=== PATIENT | male | born 1985 | race Caucasian/White ===

== ENCOUNTER 2024-05-18 00:11 | Emergency (ER) | payer BC ==
[~2024-05-18] VITALS: Ht 180.3 cm; Wt 77.0 kg
[2024-05-18 00:27] VITALS: O2SAT 98
[2024-05-18 01:15] VITALS: TEMP 37.00296
[2024-05-18 03:18] LABS: CARBON DIOXIDE 32 mEq/L (21-32); CHLORIDE 101 mEq/L (98-107); SODIUM 139 mEq/L (136-145)
[2024-05-18 03:19] LABS: BASOPHILS % 0.2 % (0.0-2.0); CALCIUM 9.4 mg/dL (8.7-10.4); HEMATOCRIT. 35.6 % (42.0-52.0); HEMOGLOBIN. 12.3 g/dL (14.0-18.0); LYMPHOCYTES % 13.8 % (20.0-50.0); MEAN CORPUSCULAR HEMOGLOBIN 31.7 pg (28.0-32.0); MEAN CORPUSCULAR HGB CONC 34.5 g/dL (31.0-37.0); MEAN CORPUSCULAR VOLUME 91.9 fL (80.0-94.0); MEAN PLATELET VOLUME 8.4 fl (7.4-10.4); MONOCYTES % 8.2 % (2.0-8.0); NEUTROPHILS % 74.8 % (40.0-76.0); PLATELET 172 x1000/uL (130-400); RED BLOOD CELL COUNT 3.87 mill/uL (4.7-6.1); RED CELL DISTRIBUTION WIDTH 13.1 % (11.6-14.6); WHITE BLOOD COUNT 7.5 x1000/uL (4.5-11.0)
[2024-05-18 03:23] LABS: GLUCOSE 96 mg/dL (70-105)
[2024-05-18 03:24] LABS: UREA NITROGEN BLOOD 6 mg/dL (9-23)
[2024-05-18 03:25] LABS: ACETAMINOPHEN < 2 ug/mL (10-30)
[2024-05-18] MEDS ORDERED: NALO4SPR BOTHNSTRLS (03:25)
[2024-05-18 03:37] LABS: CLARITY URINE CLEAR (CLEAR); COLOR URINE YELLOW (YELLOW); GLUCOSE URINE NEGATIVE (NEGATIVE); KETONES URINE NEGATIVE (NEGATIVE); LEUKOCYTE ESTERASE URINE NEGATIVE (NEGATIVE); NITRITE URINE NEGATIVE (NEGATIVE); OCCULT BLOOD URINE NEGATIVE (NEGATIVE); PROTEIN URINE NEGATIVE (NEGATIVE); SPECIFIC GRAVITY URINE 1.004 (1.005-1.030); UROBILINOGEN URINE 0.2 E.U./dL (0.2-1.0)
[2024-05-18 03:48] LABS: *AMPHETAMINES SCREEN URINE NEGATIVE (NEGATIVE); ETHANOL BLOOD < 10 mg/dL (<10)
[2024-05-18 03:49] LABS: *BARBITURATES SCREEN URINE NEGATIVE (NEGATIVE); *BENZODIAZEPINES SCREEN URINE PRESUMPTIVE POSITIVE (NEGATIVE); *COCAINE SCREEN URINE NEGATIVE (NEGATIVE); CANNABINOID URINE SCREEN NEGATIVE (NEGATIVE); ECSTASY MDMA SCREEN URINE NEGATIVE (NEGATIVE); METHADONE URINE SCREEN NEGATIVE (NEGATIVE); OPIATES URINE SCREEN NEGATIVE (NEGATIVE); PHENCYCLIDINE URINE SCREEN NEGATIVE (NEGATIVE)
[2024-05-18 05:15] VITALS: BP 115/67; PULSE 87; RESP 16; O2SAT 96
== END 2024-05-18 05:41 | disposition home or self-care (01) ==
LOC: ER 00:11
DX: F11.90 Opioid use, unspecified, uncomplicated (principal); F13.90 Sedative, hypnotic, or anxiolytic use, unspecified, uncomplicated
CPT/HCPCS: 36415; 80048; 80305; 80307; 80320; 80329; 81003; 85025; 99283; G0480